=== PATIENT | female | born 1935 | race Caucasian/White ===

== ENCOUNTER 2019-08-01 14:17 | Inpatient (IN) | payer MEDICARE ==
[~2019-08-01] VITALS: Ht 154.9 cm; Wt 66.6 kg
[~2019-08-01 14:17] MED LIST: ALBU0.63 NEB; ATOR20TA37 PO; CEPH-368 PO; CIPRO; CLON0.2T PO; LEVO100T5 PO; LISI2.5T PO; METF500T17 PO; METO25TA35 PO; METO50TA82 PO; OXYB5TAB10 PO; SULF-169 PO; UNKNOWN BP MED
--- NOTE | 2019-08-01 14:26 | NUR ---
PT BIB BY [place] FOR SOB AND SHE SAYS "I FEEL LIKE I HAVE A LUMP IN MY THROAT AND I CANT BREATH". PT IS 97% ON ROOM AIR. HOOKED UP TO [employer]USB[employer] WORK[employer]. BLANKET PROVIDED.
--- NOTE | 2019-08-01 15:39 | NUR ---
PTS DAUGHTER CALLED SAYING "SHES BEEN SCREAMING ALL NIGHT AND KEEPING US AWAKE LATELY. SHES BEEN CONFUSED ABOUT TO WHERE SHES AT SOMETIMES. I THINK SHE IS STARTING TO GET DEMENTIA'". PT IS 100% ON 1 LITER.
[2019-08-01 16:35] LABS: BASOPHILS # (AUTO) 0.01 x10^3/uL (0-0.1); BASOPHILS % (AUTO) 0 % (0-1); EOSINOPHILS # (AUTO) 0.02 x10^3/uL (0-0.4); EOSINOPHILS % (AUTO) 0 % (1-7); LYMPHOCYTES # (AUTO) 1.14 x10^3/uL (1-3.4); LYMPHOCYTES % (AUTO) 20 % (22-44); MD NO; MEAN CORPUSCULAR HEMOGLOBIN 29.6 pg (27.0-34.8); MEAN PLATELET VOLUME 7.2 fL (7.4-10.4); MONOCYTES # (AUTO) 0.34 x10^3/uL (0.2-0.8); MONOCYTES % (AUTO) 6 % (2-9); NEUTROPHILS # (AUTO) 4.26 x10^3/uL (1.8-6.8); NEUTROPHILS % (AUTO) 74 % (42-75); PLATELET COUNT 239 x10^3/uL (130-400); RED BLOOD COUNT 3.28 x10^6/uL (3.82-5.3); RED CELL DISTRIBUTION WIDTH 13.6 % (9.6-15.2)
[2019-08-01 16:40] LABS: ALBUMIN 3.5 g/dL (3.4-5.0); ANION GAP 10 mmol/L (5-15); CALCIUM 8.8 mg/dL (8.5-10.1); CHLORIDE 98 mmol/L (98-107); CREATININE 2.88 mg/dL (0.55-1.02)
[2019-08-01] MEDS ORDERED: SODIUM CHLORIDE FLUSH 10ML SYR IVF ONE ×2 (17:00→17:30)
--- NOTE | 2019-08-01 17:27 | NUR ---
PT UP TO BATHROOM WITH FEMALE NURSE. SPOKE TO MD ABOUT PHONE CONVERSATION I HAD WITH DAUGHTER. HE SAID "AFTER I MEDICALLY CLEAR HER I WILL PUT IN FOR A SOCIAL CONSULT"
[2019-08-01] MEDS ORDERED: SODIUM CHLORIDE 0.9% 1,000ML IVBOLUS ONE (17:30)
--- NOTE | 2019-08-01 18:08 | NUR ---
PT IN CT
--- NOTE | 2019-08-01 18:37 | NUR ---
PT IS RESTING IN HOSPITAL BED. WATCHING TV. NO NEEDS AT THIS TIME
[2019-08-01] MEDS ORDERED: SODIUM CHLORIDE 0.9% 1,000 ML IV ONE (19:22)
[2019-08-01] MEDS ORDERED: SODIUM CHLORIDE FLUSH 10ML SYR IVF PRN (19:30)
[2019-08-01 19:56] LABS: MICROSCOPIC AUTO
[2019-08-01 20:04] LABS: CULTURE INDICATED? YES
[2019-08-01] MEDS ORDERED: CEFTRIAXONE PMX 1GM/50ML 50 ML ONE (20:08)
--- NOTE | 2019-08-01 20:18 | NUR ---
ASKED DR JURADO IF HE WANTS TO DRAW BLOOD CULTURES SINCE PT HAD UTI. HE SAID HE DIDNT FEEL IT WAS NECESSARY AND FOR ME TO GIVE ABX
[2019-08-01] MEDS ORDERED: CEFTRIAXONE PMX 1GM/50ML 50 ML IVPB ONE (20:30)
[2019-08-01] MEDS: INSULIN LISPRO 100 UNITS/ML, PEN SQ-INSULIN SCH (21:00)
[2019-08-01 21:43] VITALS: BP 144/70
[2019-08-01] MEDS: SULFAMETH./TRIMETHOPRIM DS 800MG/160MG TABLET PO SCH (21:48)
[2019-08-01] MEDS: ENOXAPARIN 30 MG/0.3 ML SQ SCH (21:49)
[2019-08-01] MEDS: SODIUM BICARBONATE 650 MG TABLET PO SCH (21:49)
[2019-08-01] MEDS: SODIUM CHLORIDE 0.9% 1,000 ML IV SCH (21:49)
[2019-08-01] MEDS: TEMAZEPAM 15 MG CAPSULE PO PRN (23:17)
[2019-08-02 01:00] VITALS: BP 117/62
[2019-08-02] MEDS: LEVOTHYROXINE 100 MCG TABLET PO SCH (06:03)
[2019-08-02 06:07] LABS: BASOPHILS # (AUTO) 0.01 x10^3/uL (0-0.1); BASOPHILS % (AUTO) 0 % (0-1); EOSINOPHILS # (AUTO) 0.04 x10^3/uL (0-0.4); EOSINOPHILS % (AUTO) 1 % (1-7); LYMPHOCYTES # (AUTO) 1.19 x10^3/uL (1-3.4); LYMPHOCYTES % (AUTO) 25 % (22-44); MD NO; MEAN CORPUSCULAR HEMOGLOBIN 29.5 pg (27.0-34.8); MEAN CORPUSCULAR HGB CONC 33.6 g/dL (32.4-35.8); MEAN CORPUSCULAR VOLUME 87.7 fL (80-100); MEAN PLATELET VOLUME 6.9 fL (7.4-10.4); MONOCYTES # (AUTO) 0.28 x10^3/uL (0.2-0.8); MONOCYTES % (AUTO) 6 % (2-9); NEUTROPHILS # (AUTO) 3.22 x10^3/uL (1.8-6.8); NEUTROPHILS % (AUTO) 68 % (42-75); PLATELET COUNT 220 x10^3/uL (130-400); RED BLOOD COUNT 3.21 x10^6/uL (3.82-5.3); RED CELL DISTRIBUTION WIDTH 13.8 % (9.6-15.2)
[2019-08-02 06:16] LABS: ANION GAP 10 mmol/L (5-15); CALCIUM 8.1 mg/dL (8.5-10.1); CHLORIDE 105 mmol/L (98-107)
[2019-08-02] MEDS: INSULIN LISPRO 100 UNITS/ML, PEN SQ-INSULIN SCH ×4 (07:00→20:36)
[2019-08-02] MEDS: SULFAMETH./TRIMETHOPRIM DS 800MG/160MG TABLET PO SCH ×2 (08:13→20:36)
[2019-08-02] MEDS: ACETAMINOPHEN 325 MG TABLET PO PRN (08:13)
[2019-08-02] MEDS: SODIUM BICARBONATE 650 MG TABLET PO SCH ×2 (08:13→20:36)
[2019-08-02 09:16] VITALS: BP 149/66
[2019-08-02] MEDS: SODIUM CHLORIDE 0.9% 1,000 ML IV SCH (13:38)
[2019-08-02 14:55] VITALS: BP 107/63
[2019-08-02 19:13] VITALS: BP 121/69
[2019-08-02] MEDS: ENOXAPARIN 30 MG/0.3 ML SQ SCH (20:36)
[2019-08-02] MEDS: TEMAZEPAM 15 MG CAPSULE PO PRN (20:36)
[2019-08-03 00:12] VITALS: BP 124/62
[2019-08-03] MEDS: SODIUM CHLORIDE 0.9% 1,000 ML IV SCH (02:59)
[2019-08-03] MEDS: LEVOTHYROXINE 100 MCG TABLET PO SCH (05:41)
[2019-08-03] MEDS: INSULIN LISPRO 100 UNITS/ML, PEN SQ-INSULIN SCH ×4 (07:16→21:34)
[2019-08-03 08:00] VITALS: BP 167/82
[2019-08-03] MEDS: HYDROcodone/APAP 5/325 TABLET PO PRN (08:37)
[2019-08-03] MEDS: SULFAMETH./TRIMETHOPRIM DS 800MG/160MG TABLET PO SCH ×2 (08:37→21:33)
[2019-08-03] MEDS: SODIUM BICARBONATE 650 MG TABLET PO SCH ×2 (08:37→21:33)
[2019-08-03] MEDS: ONDANSETRON ODT 4 MG PO PRN ×2 (11:15→21:33)
[2019-08-03 12:41] VITALS: BP 138/60
[2019-08-03] MEDS: ACETAMINOPHEN 325 MG TABLET PO PRN (16:36)
[2019-08-03 20:44] VITALS: BP 153/68
[2019-08-03] MEDS: TEMAZEPAM 15 MG CAPSULE PO PRN (21:33)
[2019-08-03] MEDS: ENOXAPARIN 30 MG/0.3 ML SQ SCH (21:33)
[2019-08-04 00:20] VITALS: BP 160/80
[2019-08-04] MEDS: LEVOTHYROXINE 100 MCG TABLET PO SCH (05:32)
[2019-08-04 06:28] LABS: CHLORIDE 108 mmol/L (98-107)
[2019-08-04 06:35] LABS: BASOPHILS # (AUTO) 0.01 x10^3/uL (0-0.1); BASOPHILS % (AUTO) 0 % (0-1); EOSINOPHILS # (AUTO) 0.03 x10^3/uL (0-0.4); EOSINOPHILS % (AUTO) 1 % (1-7); LYMPHOCYTES # (AUTO) 1.46 x10^3/uL (1-3.4); LYMPHOCYTES % (AUTO) 22 % (22-44); MD NO; MEAN CORPUSCULAR HEMOGLOBIN 29.2 pg (27.0-34.8); MEAN CORPUSCULAR HGB CONC 33.1 g/dL (32.4-35.8); MEAN CORPUSCULAR VOLUME 88.2 fL (80-100); MEAN PLATELET VOLUME 6.8 fL (7.4-10.4); MONOCYTES # (AUTO) 0.35 x10^3/uL (0.2-0.8); MONOCYTES % (AUTO) 5 % (2-9); NEUTROPHILS # (AUTO) 4.79 x10^3/uL (1.8-6.8); NEUTROPHILS % (AUTO) 72 % (42-75); PLATELET COUNT 216 x10^3/uL (130-400); RED CELL DISTRIBUTION WIDTH 13.9 % (9.6-15.2)
[2019-08-04 06:37] VITALS: BP 153/84
[2019-08-04 06:41] LABS: ALANINE AMINOTRANSFERASE 11 U/L (12-78); ALBUMIN 3.1 g/dL (3.4-5.0); ALKALINE PHOSPHATASE 90 U/L (45-117); ANION GAP 6 mmol/L (5-15); BILIRUBIN,TOTAL 0.3 mg/dL (0.2-1.0); CALCIUM 8.7 mg/dL (8.5-10.1); CREATININE 2.29 mg/dL (0.55-1.02); TOTAL PROTEIN 6.6 g/dL (6.4-8.2)
[2019-08-04] MEDS: INSULIN LISPRO 100 UNITS/ML, PEN SQ-INSULIN SCH ×4 (07:00→20:39)
[2019-08-04] MEDS: SODIUM BICARBONATE 650 MG TABLET PO SCH ×2 (07:53→20:56)
[2019-08-04] MEDS: SULFAMETH./TRIMETHOPRIM DS 800MG/160MG TABLET PO SCH ×2 (07:53→20:56)
[2019-08-04 12:33] VITALS: BP 172/73
[2019-08-04 13:20] LABS: % IRON SATURATION 22 % (20-55); IRON LEVEL 50 mcg/dL (50-170); TOTAL IRON BINDING CAPACITY 226 mcg/dL (250-450)
[2019-08-04] MEDS ORDERED: ONDANSETRON 0.8 MG/ML ORAL SOL PO PRN (13:30)
[2019-08-04] MEDS: IRBESARTAN 150 MG TABLET PO SCH (13:31)
[2019-08-04] MEDS: SODIUM CHLORIDE 0.9% 1,000 ML IV SCH ×2 (13:34→22:07)
[2019-08-04 19:32] VITALS: BP 173/72
[2019-08-04] MEDS: ONDANSETRON ODT 4 MG PO PRN (19:46)
[2019-08-04 20:55] VITALS: BP 165/75
[2019-08-04] MEDS: TEMAZEPAM 15 MG CAPSULE PO PRN (20:56)
[2019-08-04] MEDS: ENOXAPARIN 30 MG/0.3 ML SQ SCH (20:59)
[2019-08-05 00:13] VITALS: BP 167/78
[2019-08-05] MEDS: ONDANSETRON ODT 4 MG PO PRN ×3 (02:06→23:15)
[2019-08-05] MEDS: ACETAMINOPHEN 325 MG TABLET PO PRN (02:06)
[2019-08-05 05:44] LABS: BASOPHILS # (AUTO) 0.01 x10^3/uL (0-0.1); BASOPHILS % (AUTO) 0 % (0-1); EOSINOPHILS # (AUTO) 0.01 x10^3/uL (0-0.4); EOSINOPHILS % (AUTO) 0 % (1-7); LYMPHOCYTES # (AUTO) 1.21 x10^3/uL (1-3.4); LYMPHOCYTES % (AUTO) 19 % (22-44); MD NO; MEAN CORPUSCULAR HEMOGLOBIN 29.6 pg (27.0-34.8); MEAN CORPUSCULAR HGB CONC 33.4 g/dL (32.4-35.8); MEAN CORPUSCULAR VOLUME 88.5 fL (80-100); MEAN PLATELET VOLUME 6.7 fL (7.4-10.4); MONOCYTES # (AUTO) 0.35 x10^3/uL (0.2-0.8); MONOCYTES % (AUTO) 5 % (2-9); NEUTROPHILS # (AUTO) 4.85 x10^3/uL (1.8-6.8); NEUTROPHILS % (AUTO) 75 % (42-75); PLATELET COUNT 195 x10^3/uL (130-400); RED BLOOD COUNT 3.14 x10^6/uL (3.82-5.3); RED CELL DISTRIBUTION WIDTH 13.6 % (9.6-15.2)
[2019-08-05 05:56] LABS: ALANINE AMINOTRANSFERASE 9 U/L (12-78); ALBUMIN 2.9 g/dL (3.4-5.0); ANION GAP 7 mmol/L (5-15); CHLORIDE 107 mmol/L (98-107)
[2019-08-05 05:58] LABS: ALKALINE PHOSPHATASE 81 U/L (45-117); BILIRUBIN,TOTAL 0.3 mg/dL (0.2-1.0); TOTAL PROTEIN 5.9 g/dL (6.4-8.2)
[2019-08-05] MEDS: LEVOTHYROXINE 100 MCG TABLET PO SCH (06:11)
[2019-08-05] MEDS: SODIUM CHLORIDE 0.9% 1,000 ML IV SCH ×3 (06:11→23:10)
[2019-08-05 07:17] VITALS: BP 160/73
[2019-08-05] MEDS: INSULIN LISPRO 100 UNITS/ML, PEN SQ-INSULIN SCH ×4 (08:10→21:00)
[2019-08-05] MEDS: SODIUM BICARBONATE 650 MG TABLET PO SCH ×2 (08:35→23:10)
[2019-08-05] MEDS: IRBESARTAN 150 MG TABLET PO SCH (08:35)
[2019-08-05] MEDS: SULFAMETH./TRIMETHOPRIM DS 800MG/160MG TABLET PO SCH ×2 (08:35→23:10)
[2019-08-05] MEDS: HYDROcodone/APAP 5/325 TABLET PO PRN (08:36)
[2019-08-05 12:44] VITALS: BP 135/71
[2019-08-05 15:03] LABS: ANION GAP 5 mmol/L (5-15); CALCIUM 8.1 mg/dL (8.5-10.1); CHLORIDE 108 mmol/L (98-107)
[2019-08-05 15:06] LABS: ALANINE AMINOTRANSFERASE 11 U/L (12-78); ALKALINE PHOSPHATASE 84 U/L (45-117); BILIRUBIN,TOTAL 0.4 mg/dL (0.2-1.0); CREATININE 2.07 mg/dL (0.55-1.02); TOTAL PROTEIN 6.3 g/dL (6.4-8.2)
[2019-08-05] MEDS: DOCUSATE 100 MG CAPSULE PO PRN (16:16)
[2019-08-05] MEDS ORDERED: PROMETHAZINE 25 MG/ML, 1ML IM PRN (19:30)
[2019-08-05] MEDS ORDERED: PROMETHAZINE 25 MG SUPP PR PRN (19:30)
[2019-08-05 19:55] VITALS: BP 126/69
[2019-08-05] MEDS: ENOXAPARIN 30 MG/0.3 ML SQ SCH (23:11)
[2019-08-06 03:15] VITALS: BP 121/62
[2019-08-06] MEDS: LEVOTHYROXINE 100 MCG TABLET PO SCH (05:52)
[2019-08-06 05:59] LABS: ALANINE AMINOTRANSFERASE 11 U/L (12-78); ALBUMIN 2.9 g/dL (3.4-5.0); ANION GAP 6 mmol/L (5-15); CALCIUM 8.1 mg/dL (8.5-10.1); CHLORIDE 108 mmol/L (98-107); CREATININE 1.94 mg/dL (0.55-1.02)
[2019-08-06 06:02] LABS: ALKALINE PHOSPHATASE 76 U/L (45-117); BILIRUBIN,TOTAL 0.3 mg/dL (0.2-1.0); TOTAL PROTEIN 5.8 g/dL (6.4-8.2)
[2019-08-06 06:25] VITALS: BP 147/76
[2019-08-06] MEDS: INSULIN LISPRO 100 UNITS/ML, PEN SQ-INSULIN SCH ×2 (07:00→11:00)
[2019-08-06] MEDS: SODIUM CHLORIDE 0.9% 1,000 ML IV SCH (08:01)
[2019-08-06] MEDS: IRBESARTAN 150 MG TABLET PO SCH (10:12)
[2019-08-06] MEDS: SODIUM BICARBONATE 650 MG TABLET PO SCH (10:12)
[2019-08-06] MEDS: SULFAMETH./TRIMETHOPRIM DS 800MG/160MG TABLET PO SCH (10:12)
[2019-08-06] MEDS: DOCUSATE 100 MG CAPSULE PO PRN (10:12)
[2019-08-06 12:48] VITALS: BP 139/61
[2019-08-06] MEDS ORDERED: ONDA4TAB13 PO (13:48)
== END 2019-08-06 14:58 | disposition home or self-care (01) | DRG 640 ==
LOC: ED 16:31 → EDIP 19:22 → 4EST 21:30
PROVIDERS: ADMIT Internal Medicine; ATTEND Internal Medicine
DX: E87.1 Hypo-osmolality and hyponatremia (principal); N17.0 Acute kidney failure with tubular necrosis; N39.0 Urinary tract infection, site not specified; E46 Unspecified protein-calorie malnutrition; I13.0 Hypertensive heart and chronic kidney disease with heart failure and stage 1 through stage 4 chronic kidney disease, or unspecified chronic kidney disease; E86.0 Dehydration; R27.0 Ataxia, unspecified; N18.3 Chronic kidney disease, stage 3 (moderate); E03.9 Hypothyroidism, unspecified; E11.22 Type 2 diabetes mellitus with diabetic chronic kidney disease; Z68.27 Body mass index [BMI] 27.0-27.9, adult; E87.5 Hyperkalemia; I50.9 Heart failure, unspecified; J44.9 Chronic obstructive pulmonary disease, unspecified; R13.10 Dysphagia, unspecified; Z83.3 Family history of diabetes mellitus; Z87.891 Personal history of nicotine dependence; Z90.710 Acquired absence of both cervix and uterus
CPT/HCPCS: 36415; 70360; 70490; 80048; 80053; 81001; 82040; 82607; 82962; 83540; 83550; 84443; 85025; 87077; 87086; 87186; 96361; 96374; G0378; J0696; J1650; J2550; Q0162; J7030